=== PATIENT | male | born 1995 | race Hispanic/Latino ===

== ENCOUNTER 2017-07-29 13:22 | Emergency (ER) | payer MEDICAID, OTHER ==
[2017-07-29 14:08] LABS: APPEARANCE,URINE CLEAR (CLEAR); BILIRUBIN,URINE NEGATIVE (NEGATIVE); COLOR,URINE YELLOW (YELLOW); GLUCOSE, URINE (UA) NEGATIVE (NEGATIVE); KETONES,URINE NEGATIVE (NEGATIVE); LEUKOCYTE ESTERASE ,URINE NEGATIVE (NEGATIVE); NITRATE,URINE NEGATIVE (NEGATIVE); OCCULT BLOOD,URINE NEGATIVE (NEGATIVE); PROTEIN,URINE NEGATIVE (NEGATIVE)
[2017-07-29] MEDS ORDERED: KETOROLAC TROMETHAMINE 30MG/ML ONE (14:35)
== END 2017-07-29 15:10 | disposition home or self-care (01) ==
LOC: EDH 13:22
DX: S39.011A Strain of muscle, fascia and tendon of abdomen, initial encounter (principal); R30.0 Dysuria; Z72.0 Tobacco use; X58.XXXA Exposure to other specified factors, initial encounter; Y93.89 Activity, other specified; Y92.89 Other specified places as the place of occurrence of the external cause; Y99.8 Other external cause status
CPT/HCPCS: 81003; 87486; 87797; 96372; 99284; J1885

== ENCOUNTER → 2021-04-20 | Emergency (ER) | payer SELFPAY ==
[~2021-04-20] VITALS: Ht 182.9 cm; Wt 104.3 kg
[2021-04-20 08:16] VITALS: BP 140/92
== END | disposition left against medical advice (07) ==
LOC: EDH 08:15
DX: H92.02 Otalgia, left ear (principal); Z53.21 Procedure and treatment not carried out due to patient leaving prior to being seen by health care provider